=== PATIENT | female | born 1945 | race Caucasian/White ===

== ENCOUNTER 2021-11-04 17:43 | Inpatient (IN) | payer MEDICARE ==
[~2021-11-04] VITALS: Ht 154.9 cm; Wt 56.7 kg
[~2021-11-04 17:43] MED LIST: CIPROFLOXACIN500 M1 PO; GELNIQUE92 GM TD; MOBIC7.5 M1 PO; NEURONTIN 300300 M1 PO; NEXIUM40 MG; SENNA PO; VESICARE; VOLTAREN GEL 1100 G2 TOP
[2021-11-04 17:50] VITALS: BP 116/57
[2021-11-04] MEDS ORDERED: TRAZODONE HCL50 MG PO (17:53)
[2021-11-04] MEDS ORDERED: LEXAPRO20 MG PO (17:54)
[2021-11-04 18:28] LABS: ABSOLUTE LYMPHOCYTES 0.7 thou/uL (0.8-5.3); ABSOLUTE MONOCYTES 0.4 thou/uL (0.0-1.2); ABSOLUTE NEUTROPHILS 2.5 thou/uL (1.6-8.1); BASOPHILS 0.4 %; EOSINOPHILS 0.1 %; HEMATOCRIT 36.8 % (37.0-47.0); HEMOGLOBIN 12.4 gm/dL (12.0-15.0); LYMPHOCYTES 18.8 %; MCH 29.5 pg (26.0-34.0); MCHC 33.8 g/dL (28.0-37.0); MCV 87.5 fL (80.0-100.0); MONOCYTES 10.8 %; NUCLEATED RBCS 0 /100WBC; PLATELET COUNT* 181 thou/uL (150-400); POLYS 69.9 %; RDW-CV 13.1 % (10.5-14.5); WBC 3.5 thou/uL (4.0-11.0)
[2021-11-04 18:38] LABS: CALCIUM 8.2 mg/dL (8.5-10.1); CREATININE 0.7 mg/dL (0.6-1.3)
[2021-11-04 18:40] LABS: BE -3.4 mmol/L (-2 to +3); PCO2 VENOUS 35.6 mmHg (41.0-51.0); PO2 VENOUS 50.8 mmHg (35.0-45.0)
[2021-11-04 18:48] LABS: ALBUMIN 3.4 g/dL (3.4-5.0); TOTAL BILIRUBIN 0.4 mg/dL (<0.1-1.0); TOTAL PROTEIN 7.4 g/dL (6.4-8.2)
[2021-11-04 21:22] VITALS: BP 166/66
[2021-11-04 22:17] VITALS: BP 165/60
[2021-11-04 22:30] VITALS: BP 1314/65
[2021-11-04] MEDS ORDERED: OXYBUTYNIN 5 MG5 M2 PO (22:57)
[2021-11-05 04:27] VITALS: BP 122/60
[2021-11-05 08:00] VITALS: BP 100/54
--- NOTE | 2021-11-05 10:03 | EKG ---
[place] [address] ELECTROCARDIOGRAM REPORT Name: LENA EDWARDS MARCH Room: [address] ADM IN M.R.#: [id number] Admission: 11/04/21 Attend Phys: Asad Mathews Discharge: Date of : 49 Date of Service: 11/04/211801 Report #: [id number] THIS REPORT FOR: //name// [facility] ED Test Date: 2021-11-04 Test Time: 18:02:30 Pat Name: LENA EDWARDS Department: Room: [facility] Gender: F [employer]: : 1945 Requested By: Aliza Mancera Order Number: [id number] MD: Marcellus Del Toro Measurements Intervals [place] Rate: 80 P: 36 LA: 125 QRS: 74 QRSD: 84 T: -1 QT: 413 QTc: 477 Interpretive Statements Sinus rhythm Left ventricular hypertrophy, by voltage Borderline T abnormalities, diffuse leads Borderline prolonged QT interval Compared to ECG 07/27/2014 14:41:55 Left ventricular hypertrophy now present T-wave abnormality now present Electronically Signed On 11-05-2021 9:06:07 [employer] RESURF[employer] by Marcellus Del Toro [email or web address] <ELECTRONICALLY SIGNED> By: Marcellus Del Toro MD, FACC 11/05/21 0906 01 01 Marcellus Del Toro MD, FAC /EPI
[2021-11-05 12:00] VITALS: BP 103/58
[2021-11-05 16:00] VITALS: BP 110/45
[2021-11-05 17:42] LABS: ABSOLUTE LYMPHOCYTES 0.9 thou/uL (0.8-5.3); ABSOLUTE MONOCYTES 0.5 thou/uL (0.0-1.2); ABSOLUTE NEUTROPHILS 4.2 thou/uL (1.6-8.1); BASOPHILS 0.1 %; HEMATOCRIT 36.1 % (37.0-47.0); HEMOGLOBIN 12.4 gm/dL (12.0-15.0); LYMPHOCYTES 15.8 %; MCH 29.7 pg (26.0-34.0); MCHC 34.3 g/dL (28.0-37.0); MCV 86.5 fL (80.0-100.0); MONOCYTES 8.4 %; MPV 7.1 fl. (7.2-11.1); NUCLEATED RBCS 0 /100WBC; PLATELET COUNT* 208 thou/uL (150-400); POLYS 75.7 %; RBC 4.17 mil/uL (4.20-5.00); RDW-CV 13.1 % (10.5-14.5); WBC 5.6 thou/uL (4.0-11.0)
[2021-11-05 17:53] LABS: APTT 29.1 Seconds (25.0-31.3); PROTIME 10.2 Seconds (9.20-11.50)
[2021-11-05 17:58] LABS: CALCIUM 8.2 mg/dL (8.5-10.1); CREATININE 0.8 mg/dL (0.6-1.3); MAGNESIUM 2.1 mg/dL (1.8-2.4); PHOSPHORUS* 2.1 mg/dL (2.5-4.9); POTASSIUM 3.8 mmol/L (3.5-5.1); TOTAL BILIRUBIN 0.3 mg/dL (<0.1-1.0)
[2021-11-05 20:00] VITALS: BP 112/47
[2021-11-06 04:45] VITALS: BP 98/40
[2021-11-06 12:00] VITALS: BP 106/59
[2021-11-06] MEDS ORDERED: TESSALON PERLE100 MG PO (15:33)
[2021-11-06] MEDS ORDERED: PREDNISONE 10 M10 MG PO (15:36)
[2021-11-06] MEDS ORDERED: PROAIR HFA8.5 GM INH (15:36)
[2021-11-06] MEDS ORDERED: LEVOFLOXACIN500 MG PO (15:36)
[2021-11-06 15:47] VITALS: BP 106/59
== END 2021-11-06 17:00 | disposition home health service (06) | DRG 177 ==
LOC: M.ERS 17:43 → M.ORTHSURG 18:12 → M.TBA-ER 18:12 → M.ORTHSURG 22:20
PROVIDERS: Internal Medicine; Nurse Practitioner Family; ADMIT Internal Medicine; ATTEND Internal Medicine
PROC: XW033E5 Introduction of Remdesivir Anti-infective into Peripheral Vein, Percutaneous Approach, New Technology Group 5 (ICD-10-PCS; principal; 2021-11-06)
DX: U07.1 COVID-19 (principal); J96.01 Acute respiratory failure with hypoxia; J12.82 Pneumonia due to coronavirus disease 2019; Z88.6 Allergy status to analgesic agent; Z88.8 Allergy status to other drugs, medicaments and biological substances